=== PATIENT | male | born 1950 | race Caucasian/White ===

== ENCOUNTER 2024-05-16 10:54 | Observation (INO) ==
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
--- NOTE | 2024-05-16 11:39 | CT ---
EXAMINATION: BRAIN W/O CON HISTORY: DIZZINESS; . COMPARISON STUDY: 07/11/2023 TECHNIQUE: Images were obtained in brain and bone windows. The above CT scan was done with automated exposure c ontrol and the mA and kV was adjusted to obtain quality images according to patient size. FINDINGS: There is no acute intracranial hemorrhage, midline shift or edema present. There is atrophy and deep white matter ischemic change due to small vessel disease. Phelps-white matter differentiation is main tained throughout. There are no intra-axial or extra-axial collections noted. There is mild motion artifact. Basal ganglia calcification is noted.. The sinuses are clear. The mastoid air cells are clear. There is no radiographic evidence of depres sed skull fracture. Vascular calcification about the skull base. IMPRESSION: No acute intracranial process. Atrophy and deep white matter ischemic change due to small vessel dis ease. No change compared with prior. THIS IS AN ELECTRONICALLY VERIFIED FINAL REPORT 05/16/2024 11:36 AM - Electronically signed by Davion Olsen MD
[2024-05-16] MEDS ORDERED: NS 500 ML IV 500 ML IV ONE (11:41)
[2024-05-16] MEDS: NS 500 ML IV 500 ML IV ONE (11:48)
--- NOTE | 2024-05-16 11:50 | EKG ---
Test Reason : altered MS Blood Pressure : */* mmHG Vent. Rate : 61 BPM Atrial Rate : 61 BPM P-R Int : 196 ms QRS Dur : 96 ms QT Int : 460 ms P-R-T Axes : * 55 143 degrees QTc Int : 463 ms Atrial-paced rhythm Nonspecific ST and T wave abnormality Prolonged QT Abnormal ECG When compared with ECG of 11-JUL-2023 10:51, Nonspecific T wave abnormality, improved in Inferior leads T wave inversion now evident in Lateral leads Confirmed by Donal Koenig MD ([id number]) on 05/17/2024 6:01:40 AM Referred By: Confirmed By: Donal Koenig MD
[2024-05-16 12:11] LABS: BASOPHILS % (AUTO) 0.5 % (0.2-1.0); EOSINOPHILS # (AUTO) 0.1 x10^3/uL (0.0-0.2); HEMATOCRIT 36.9 % (42.0-54.0); HEMOGLOBIN 12.6 g/dL (13.5-18.0); LYMPHOCYTES # (AUTO) 1.1 X10^3/uL (1.3-2.9); LYMPHOCYTES % (AUTO) 17.6 % (21.0-51.0); MEAN CORPUSCULAR HEMOGLOBIN 34.6 pg (27.0-34.0); MEAN CORPUSCULAR HGB CONC 34.2 g/dL (33.0-35.0); MEAN CORPUSCULAR VOLUME 101.1 fL (80.0-100.0); MEAN PLATELET VOLUME 7.1 fL (7.4-11.0); MONOCYTES # (AUTO) 0.5 x10^3/uL (0.3-0.8); MONOCYTES % (AUTO) 8.5 % (0.0-13.0); NEUTROPHILS # (AUTO) 4.3 x10^3/uL (2.2-4.8); NEUTROPHILS % (AUTO) 71.4 % (42.0-75.0); PLATELET COUNT 206 X10^3/uL (150.0-450.0); RED BLOOD COUNT 3.65 X10^6/uL (4.7-6.0); RED CELL DISTRIBUTION WIDTH 14.1 % (11.6-16.5)
[2024-05-16 12:29] LABS: ALANINE AMINOTRANSFERASE 16 Units/L (12-78); ALKALINE PHOSPHATASE 88 Units/L (46-116); ASPARTATE AMINO TRANSFERASE 15 Units/L (15-37); BLOOD UREA NITROGEN 40 mg/dL (7-18); CARBON DIOXIDE 25.4 mmol/L (21-32); CHLORIDE 105 mmol/L (98-107); COR CA(FOR HYPOALB) 8.8 mg/dL (8.5-10.1); CREATINE KINASE 61 Units/L (39-308); CREATININE 1.97 mg/dL (0.70-1.30); GLUCOSE 109 mg/dL (65-99); LIPASE 19 Units/L (16-77); POTASSIUM 4.1 mmol/L (3.5-5.1); SODIUM 138 mmol/L (136-145); TOTAL PROTEIN 6.3 g/dL (6.4-8.2); eGFR NON BLACK RACES 35 (>60)
[2024-05-16] MEDS ORDERED: NS 1,000 ML IV 1,000 ML ONE (12:31)
--- NOTE | 2024-05-16 13:18 | RAD ---
EXAM:CHEST, 1 VIEWHISTORY:DIZZINESS;COMPARISON:July 11, 2023TECHNIQUE:Portable upright chest radiographFINDINGS:Stable heart size. Multi lead cardiac pacemaker in place with battery pack localized to the left chest wall. No developing consolidation or overt pulmonary edema, or pleural fluid collection. No pneumothorax or radiographic evidence of free air below the diaphragm.IMPRESSION:Stable chest radiograph without acute abnormalities.THIS IS AN ELECTRONICALLY VERIFIED FINAL REPORT05/16/2024 1:11 PM - Electronically signed by Sergio Cornejo MD
[2024-05-16 14:47] VITALS: BMI 23.5
[2024-05-16] MEDS ORDERED: CONSULT PHARMACY - POTASSIUM & MAGNESIUM XX SCH (16:19)
[2024-05-16 16:20] LABS: BILIRUBIN,URINE NEGATIVE (NEGATIVE); BLOOD/HEMOGLOBIN,URINE 5+ (NEGATIVE); GLUCOSE, URINE NEGATIVE (NEGATIVE); KETONES,URINE NEGATIVE (NEGATIVE); LEUKOCYTE ESTERASE ,URINE 2+ (NEGATIVE); NITRITES,URINE NEGATIVE (NEGATIVE); PROTEIN,URINE 2+ (NEGATIVE); UROBILINOGEN,URINE NORMAL (NORMAL)
[2024-05-16 16:25] LABS: APPEARANCE,URINE HAZY (CLEAR); COLOR,URINE DARK YELLOW (YELLOW)
[2024-05-16 16:32] LABS: BACTERIA,URINE 2+ /HPF (NEGATIVE); SQUAMOUS EPITHELIAL CELL,UR FEW /HPF (NEGATIVE)
[2024-05-16] MEDS: NS 1,000 ML IV 1,000 ML IV SCH (16:41)
--- NOTE | 2024-05-16 19:01 | EKG ---
Test Reason : arrythmia Blood Pressure : */* mmHG Vent. Rate : 64 BPM Atrial Rate : 64 BPM P-R Int : 202 ms QRS Dur : 96 ms QT Int : 440 ms P-R-T Axes : -14 19 146 degrees QTc Int : 453 ms Atrial-paced rhythm Nonspecific T wave abnormality Abnormal ECG When compared with ECG of 16-MAY-2024 11:35, (Unconfirmed) No significant change was found Confirmed by Donal Koenig MD ([id number]) on 05/17/2024 5:59:52 AM Referred By: Confirmed By: Donal Koenig MD
[2024-05-16] MEDS: ROCEPHIN VIAL 1 GRAM 1 G in NS 100 ML IV 100 ML IV SCH (21:59)
[2024-05-17 05:22] LABS: BASOPHILS % (AUTO) 0.5 % (0.2-1.0); EOSINOPHILS # (AUTO) 0.1 x10^3/uL (0.0-0.2); EOSINOPHILS % (AUTO) 1.4 % (0.9-2.9); HEMATOCRIT 36.7 % (42.0-54.0); HEMOGLOBIN 12.5 g/dL (13.5-18.0); LYMPHOCYTES # (AUTO) 1.4 X10^3/uL (1.3-2.9); LYMPHOCYTES % (AUTO) 16.3 % (21.0-51.0); MEAN CORPUSCULAR HEMOGLOBIN 34.6 pg (27.0-34.0); MEAN CORPUSCULAR HGB CONC 34.1 g/dL (33.0-35.0); MEAN CORPUSCULAR VOLUME 101.4 fL (80.0-100.0); MEAN PLATELET VOLUME 7.4 fL (7.4-11.0); MONOCYTES # (AUTO) 0.6 x10^3/uL (0.3-0.8); MONOCYTES % (AUTO) 7.6 % (0.0-13.0); NEUTROPHILS # (AUTO) 6.2 x10^3/uL (2.2-4.8); NEUTROPHILS % (AUTO) 74.2 % (42.0-75.0); PLATELET COUNT 202 X10^3/uL (150.0-450.0); RED BLOOD COUNT 3.62 X10^6/uL (4.7-6.0); RED CELL DISTRIBUTION WIDTH 13.9 % (11.6-16.5); WHITE BLOOD COUNT 8.3 X10^3/uL (3.6-10.0)
[2024-05-17 05:32] LABS: ALANINE AMINOTRANSFERASE 15 Units/L (12-78); ALBUMIN 2.8 g/dL (3.4-5.0); ALKALINE PHOSPHATASE 101 Units/L (46-116); ASPARTATE AMINO TRANSFERASE 17 Units/L (15-37); BLOOD UREA NITROGEN 30 mg/dL (7-18); CALCIUM 7.7 mg/dL (8.5-10.1); CHLORIDE 109 mmol/L (98-107); COR CA(FOR HYPOALB) 8.7 mg/dL (8.5-10.1); GLUCOSE 90 mg/dL (65-99); POTASSIUM 4.2 mmol/L (3.5-5.1); SODIUM 141 mmol/L (136-145); eGFR NON BLACK RACES 57 (>60)
[2024-05-17] MEDS: ISOSORBIDE MONONITRATE ER 24-HR PO SCH (10:00)
[2024-05-17] MEDS: LIPITOR TAB 40 MG PO SCH (10:00)
[2024-05-17] MEDS: RANEXA PO SCH (10:00)
[2024-05-17] MEDS: ASPIRIN EC 81 MG PO SCH (10:04)
[2024-05-17] MEDS: COZAAR PO SCH (10:08)
[2024-05-17] MEDS: PROSCAR PO SCH (10:08)
[2024-05-17] MEDS: ALDACTONE TAB 25 MG PO SCH (10:08)
[2024-05-17] MEDS: TOPROL XL PO SCH (10:08)
[2024-05-17] MEDS: PLAVIX PO SCH (10:08)
[2024-05-17] MEDS: PROTONIX TAB 40 MG PO SCH (10:08)
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
[2024-05-17] MEDS: FLOMAX PO SCH (21:07)
[2024-05-17] MEDS: NEURONTIN CAP 100 MG PO SCH (21:08)
[2024-05-18 04:35] VITALS: TEMP 98
[2024-05-18 05:25] LABS: BASOPHILS % (AUTO) 0.5 % (0.2-1.0); EOSINOPHILS # (AUTO) 0.1 x10^3/uL (0.0-0.2); EOSINOPHILS % (AUTO) 2.2 % (0.9-2.9); HEMATOCRIT 35.6 % (42.0-54.0); HEMOGLOBIN 12.1 g/dL (13.5-18.0); LYMPHOCYTES # (AUTO) 1.5 X10^3/uL (1.3-2.9); LYMPHOCYTES % (AUTO) 23.1 % (21.0-51.0); MEAN CORPUSCULAR HEMOGLOBIN 34.6 pg (27.0-34.0); MEAN CORPUSCULAR VOLUME 101.6 fL (80.0-100.0); MEAN PLATELET VOLUME 7.4 fL (7.4-11.0); MONOCYTES # (AUTO) 0.5 x10^3/uL (0.3-0.8); MONOCYTES % (AUTO) 7.5 % (0.0-13.0); NEUTROPHILS # (AUTO) 4.5 x10^3/uL (2.2-4.8); NEUTROPHILS % (AUTO) 66.7 % (42.0-75.0); PLATELET COUNT 198 X10^3/uL (150.0-450.0); RED BLOOD COUNT 3.51 X10^6/uL (4.7-6.0); RED CELL DISTRIBUTION WIDTH 13.9 % (11.6-16.5); WHITE BLOOD COUNT 6.7 X10^3/uL (3.6-10.0)
[2024-05-18 05:43] LABS: ALANINE AMINOTRANSFERASE 13 Units/L (12-78); ALBUMIN 2.8 g/dL (3.4-5.0); ALKALINE PHOSPHATASE 70 Units/L (46-116); ASPARTATE AMINO TRANSFERASE 15 Units/L (15-37); BLOOD UREA NITROGEN 17 mg/dL (7-18); CALCIUM 7.8 mg/dL (8.5-10.1); CARBON DIOXIDE 23.5 mmol/L (21-32); CHLORIDE 108 mmol/L (98-107); COR CA(FOR HYPOALB) 8.8 mg/dL (8.5-10.1); CREATININE 0.94 mg/dL (0.70-1.30); GLUCOSE 84 mg/dL (65-99); SODIUM 142 mmol/L (136-145); TOTAL PROTEIN 5.9 g/dL (6.4-8.2); eGFR NON BLACK RACES > 60 (>60)
[2024-05-18 10:53] VITALS: BP 173/90; PULSE 70; RESP 32; O2SAT 96
--- NOTE | 2024-05-22 15:22 | W.DIS.FURT ---
Summary of Discharge Discharge Summary of Date Date of Exam: 05/18/24 Admission Date Date of Admission: 05/16/24 Admission Diagnosis Patient Problems (Updated 05/17/24 @ 10:53 by Lorenzo Davidson) Acute hypotension (Acute) I95.9 Hospital Course: Patient is a 74-year-old male admitted for dehydration, acute kidney injury, and acute cystitis. His hospital/treatment course included: IV fluids, IV antibi otics Rocephin. Pt responded well to treatments and symptoms significantly improved. His blood pressure stabilized and confusion resolved. Urine culture no growth to date. Pt discharged in stable condition. Rx cefdinir. Instructed to follow up with pcp in 1 week. Vital Signs: Vital Signs (72 hours) 05/16/24 10:56 05/16/24 11:41 05/16/24 11:45 Temperature 97.6 F Pulse Rate 62 64 67 Pulse Rate [Right Brachial] Pulse Rate [Right Radial] Respiratory Rate 17 24 17 Blood Pressure 86/54 Blood Pressure [Right Arm] O2 Sat by Pulse Oximetry 94 L Oxygen Delivery Method Room Air 05/16/24 11:00 05/16/24 11:30 05/16/24 12:00 Temperature Pulse Rate 62 61 Pulse Rate [Right Brachial] Pulse Rate [Right Radial] Respiratory Rate Blood Pressure 96/51 84/51 75/51 Blood Pressure [Right Arm] O2 Sat by Pulse Oximetry 93 L Oxygen Delivery Method 05/16/24 12:00 05/16/24 12:11 05/16/24 12:11 Temperature Pulse Rate 62 61 Pulse Rate [Right Brachial] Pulse Rate [Right Radial] Respiratory Rate 26 H 20 Blood Pressure 101/58 Blood Pressure [Right Arm] O2 Sat by Pulse Oximetry Oxygen Delivery Method 05/16/24 12:15 05/16/24 12:30 05/16/24 12:30 Temperature Pulse Rate 61 60 Pulse Rate [Right Brachial] Pulse Rate [Right Radial] Respiratory Rate 19 22 Blood Pressure 99/57 Blood Pressure [Right Arm] O2 Sat by Pulse Oximetry Oxygen Delivery Method 05/16/24 12:30 05/16/24 12:45 05/16/24 13:00 Temperature Pulse Rate 60 Pulse Rate [Right Brachial] Pulse Rate [Right Radial] Respiratory Rate 22 Blood Pressure 99/57 102/57 Blood Pressure [Right Arm] O2 Sat by Pulse Oximetry Oxygen Delivery Method 05/16/24 13:00 05/16/24 13:15 05/16/24 13:30 Temperature Pulse Rate 62 61 Pulse Rate [Right Brachial] Pulse Rate [Right Radial] Respiratory Rate 25 H 23 Blood Pressure 111/58 Blood Pressure [Right Arm] O2 Sat by Pulse Oximetry Oxygen Delivery Method 05/16/24 13:30 05/16/24 13:45 05/16/24 14:00 Temperature Pulse Rate 63 63 63 Pulse Rate [Right Brachial] Pulse Rate [Right Radial] Respiratory Rate 24 19 18 Blood Pressure Blood Pressure [Right Arm] O2 Sat by Pulse Oximetry Oxygen Delivery Method 05/16/24 14:00 05/16/24 14:14 05/16/24 14:43 Temperature 98.2 F Pulse Rate Pulse Rate [Right Brachial] 68 Pulse Rate [Right Radial] Respiratory Rate 22 Blood Pressure 111/64 Blood Pressure [Right Arm] 111/63 O2 Sat by Pulse Oximetry Oxygen Delivery Method Room Air 05/16/24 15:00 05/16/24 14:14 05/16/24 16:00 Temperature 97.6 F 97.6 F Pulse Rate 68 68 Pulse Rate [Right Brachial] 60 Pulse Rate [Right Radial] Respiratory Rate 23 33 H 20 Blood Pressure 111/63 89/57 Blood Pressure [Right Arm] 104/58 O2 Sat by Pulse Oximetry 95 Oxygen Delivery Method Room Air Room Air 05/16/24 13:48 05/16/24 16:07 05/16/24 15:00 Temperature Pulse Rate 62 63 Pulse Rate [Right Brachial] Pulse Rate [Right Radial] Respiratory Rate 20 20 Blood Pressure 104/58 101/63 Blood Pressure [Right Arm] O2 Sat by Pulse Oximetry 94 L Oxygen Delivery Method Room Air Room Air Room Air 05/16/24 17:00 05/16/24 18:00 05/16/24 19:00 Temperature Pulse Rate 60 83 Pulse Rate [Right Brachial] Pulse Rate [Right Radial] Respiratory Rate 17 21 Blood Pressure 112/65 118/81 Blood Pressure [Right Arm] O2 Sat by Pulse Oximetry 94 L 95 Oxygen Delivery Method Room Air Room Air Room Air 05/16/24 19:00 05/16/24 20:00 05/16/24 20:00 Temperature 97.9 F 97.9 F Pulse Rate 71 60 Pulse Rate [Right Brachial] 60 Pulse Rate [Right Radial] 60 Respiratory Rate 17 20 20 Blood Pressure 119/64 132/58 Blood Pressure [Right Arm] 132/58 O2 Sat by Pulse Oximetry 95 97 95 Oxygen Delivery Method 05/16/24 21:00 05/16/24 22:00 05/16/24 20:25 Temperature Pulse Rate 83 70 Pulse Rate [Right Brachial] Pulse Rate [Right Radial] Respiratory Rate 20 18 Blood Pressure 139/64 135/62 Blood Pressure [Right Arm] O2 Sat by Pulse Oximetry 95 97 Oxygen Delivery Method Room Air Room Air 05/16/24 23:00 05/17/24 00:00 05/17/24 01:00 Temperature 98.2 F Pulse Rate 71 86 Pulse Rate [Right Brachial] Pulse Rate [Right Radial] 69 Respiratory Rate 19 20 20 Blood Pressure 121/61 125/66 Blood Pressure [Right Arm] 135/63 O2 Sat by Pulse Oximetry 94 L 95 95 Oxygen Delivery Method Room Air 05/17/24 03:00 05/16/24 15:00 05/16/24 15:15 Temperature Pulse Rate 70 63 60 Pulse Rate [Right Brachial] Pulse Rate [Right Radial] Respiratory Rate 23 20 19 Blood Pressure 132/73 Blood Pressure [Right Arm] O2 Sat by Pulse Oximetry 97 Oxygen Delivery Method 05/16/24 15:30 05/16/24 15:45 05/16/24 16:00 Temperature Pulse Rate 79 61 60 Pulse Rate [Right Brachial] Pulse Rate [Right Radial] Respiratory Rate 26 H 26 H 20 Blood Pressure Blood Pressure [Right Arm] O2 Sat by Pulse Oximetry 95 Oxygen Delivery Method 05/16/24 16:00 05/16/24 16:07 05/16/24 16:07 Temperature Pulse Rate 62 Pulse Rate [Right Brachial] Pulse Rate [Right Radial] Respiratory Rate 20 Blood Pressure 89/57 104/58 Blood Pressure [Right Arm] O2 Sat by Pulse Oximetry 94 L Oxygen Delivery Method 05/16/24 16:15 05/16/24 16:30 05/16/24 16:45 Temperature Pulse Rate 66 78 63 Pulse Rate [Right Brachial] Pulse Rate [Right Radial] Respiratory Rate 19 22 20 Blood Pressure Blood Pressure [Right Arm] O2 Sat by Pulse Oximetry 93 L 94 L 94 L Oxygen Delivery Method 05/16/24 17:00 05/16/24 17:00 05/16/24 17:15 Temperature Pulse Rate 60 67 Pulse Rate [Right Brachial] Pulse Rate [Right Radial] Respiratory Rate 17 24 Blood Pressure 112/65 Blood Pressure [Right Arm] O2 Sat by Pulse Oximetry 94 L 95 Oxygen Delivery Method 05/16/24 17:30 05/16/24 17:45 05/16/24 18:00 Temperature Pulse Rate 67 66 91 H Pulse Rate [Right Brachial] Pulse Rate [Right Radial] Respiratory Rate 26 H 24 31 H Blood Pressure Blood Pressure [Right Arm] O2 Sat by Pulse Oximetry 95 95 96 Oxygen Delivery Method 05/16/24 18:01 05/16/24 18:01 05/16/24 18:15 Temperature Pulse Rate 83 68 Pulse Rate [Right Brachial] Pulse Rate [Right Radial] Respiratory Rate 37 H 19 Blood Pressure 118/81 Blood Pressure [Right Arm] O2 Sat by Pulse Oximetry 95 94 L Oxygen Delivery Method 05/16/24 18:30 05/16/24 18:45 05/16/24 19:00 Temperature Pulse Rate 60 77 66 Pulse Rate [Right Brachial] Pulse Rate [Right Radial] Respiratory Rate 20 32 H 21 Blood Pressure Blood Pressure [Right Arm] O2 Sat by Pulse Oximetry 96 95 92 L Oxygen Delivery Method 05/16/24 19:00 05/16/24 19:15 05/16/24 19:30 Temperature Pulse Rate 70 68 Pulse Rate [Right Brachial] Pulse Rate [Right Radial] Respiratory Rate 38 H 34 H Blood Pressure 119/64 Blood Pressure [Right Arm] O2 Sat by Pulse Oximetry 95 96 Oxygen Delivery Method 05/16/24 19:45 05/16/24 20:00 05/16/24 20:01 Temperature Pulse Rate 66 61 Pulse Rate [Right Brachial] Pulse Rate [Right Radial] Respiratory Rate 17 21 Blood Pressure 132/58 Blood Pressure [Right Arm] O2 Sat by Pulse Oximetry 94 L 94 L Oxygen Delivery Method 05/16/24 20:01 05/16/24 20:15 05/16/24 20:30 Temperature Pulse Rate 62 63 60 Pulse Rate [Right Brachial] Pulse Rate [Right Radial] Respiratory Rate 17 21 20 Blood Pressure Blood Pressure [Right Arm] O2 Sat by Pulse Oximetry 94 L 96 94 L Oxygen Delivery Method 05/16/24 20:45 05/16/24 21:00 05/16/24 21:00 Temperature Pulse Rate 64 74 Pulse Rate [Right Brachial] Pulse Rate [Right Radial] Respiratory Rate 16 22 Blood Pressure 139/64 Blood Pressure [Right Arm] O2 Sat by Pulse Oximetry 94 L 93 L Oxygen Delivery Method 05/16/24 21:15 05/16/24 21:30 05/16/24 21:45 Temperature Pulse Rate 72 72 90 Pulse Rate [Right Brachial] Pulse Rate [Right Radial] Respiratory Rate 18 22 47 H Blood Pressure Blood Pressure [Right Arm] O2 Sat by Pulse Oximetry 96 91 L 97 Oxygen Delivery Method 05/16/24 22:00 05/16/24 22:00 05/16/24 22:15 Temperature Pulse Rate 71 78 Pulse Rate [Right Brachial] Pulse Rate [Right Radial] Respiratory Rate 21 26 H Blood Pressure 135/62 Blood Pressure [Right Arm] O2 Sat by Pulse Oximetry 94 L 94 L Oxygen Delivery Method 05/16/24 22:30 05/16/24 22:45 05/16/24 23:00 Temperature Pulse Rate 92 H 75 71 Pulse Rate [Right Brachial] Pulse Rate [Right Radial] Respiratory Rate 38 H 33 H 19 Blood Pressure Blood Pressure [Right Arm] O2 Sat by Pulse Oximetry 97 93 L 94 L Oxygen Delivery Method 05/16/24 23:00 05/16/24 23:15 05/16/24 23:30 Temperature Pulse Rate 80 74 Pulse Rate [Right Brachial] Pulse Rate [Right Radial] Respiratory Rate 22 20 Blood Pressure 121/61 Blood Pressure [Right Arm] O2 Sat by Pulse Oximetry 95 95 Oxygen Delivery Method 05/16/24 23:45 05/17/24 00:00 05/17/24 00:00 Temperature Pulse Rate 74 69 Pulse Rate [Right Brachial] Pulse Rate [Right Radial] Respiratory Rate 18 20 Blood Pressure 135/63 Blood Pressure [Right Arm] O2 Sat by Pulse Oximetry 95 95 Oxygen Delivery Method 05/17/24 00:15 05/17/24 00:30 05/17/24 00:45 Temperature Pulse Rate 64 67 68 Pulse Rate [Right Brachial] Pulse Rate [Right Radial] Respiratory Rate 18 15 16 Blood Pressure Blood Pressure [Right Arm] O2 Sat by Pulse Oximetry 96 90 L 97 Oxygen Delivery Method 05/17/24 01:00 05/17/24 01:00 05/17/24 01:15 Temperature Pulse Rate 71 79 Pulse Rate [Right Brachial] Pulse Rate [Right Radial] Respiratory Rate 17 23 Blood Pressure 125/66 Blood Pressure [Right Arm] O2 Sat by Pulse Oximetry 95 94 L Oxygen Delivery Method 05/17/24 01:30 05/17/24 01:45 05/17/24 02:00 Temperature Pulse Rate 78 75 77 Pulse Rate [Right Brachial] Pulse Rate [Right Radial] Respiratory Rate 19 21 24 Blood Pressure Blood Pressure [Right Arm] O2 Sat by Pulse Oximetry 92 L 96 94 L Oxygen Delivery Method 05/17/24 02:00 05/17/24 02:15 05/17/24 02:30 Temperature Pulse Rate 79 78 Pulse Rate [Right Brachial] Pulse Rate [Right Radial] Respiratory Rate 22 24 Blood Pressure 136/72 Blood Pressure [Right Arm] O2 Sat by Pulse Oximetry 95 95 Oxygen Delivery Method 05/17/24 02:45 05/17/24 03:00 05/17/24 03:00 Temperature Pulse Rate 78 79 Pulse Rate [Right Brachial] Pulse Rate [Right Radial] Respiratory Rate 20 30 H Blood Pressure 132/73 Blood Pressure [Right Arm] O2 Sat by Pulse Oximetry 95 96 Oxygen Delivery Method 05/17/24 03:15 05/17/24 03:30 05/17/24 03:45 Temperature Pulse Rate 67 63 76 Pulse Rate [Right Brachial] Pulse Rate [Right Radial] Respiratory Rate 20 14 34 H Blood Pressure Blood Pressure [Right Arm] O2 Sat by Pulse Oximetry 95 94 L 97 Oxygen Delivery Method 05/17/24 04:00 05/17/24 04:00 05/17/24 04:15 Temperature Pulse Rate 74 61 Pulse Rate [Right Brachial] Pulse Rate [Right Radial] Respiratory Rate 19 18 Blood Pressure 137/76 Blood Pressure [Right Arm] O2 Sat by Pulse Oximetry 95 98 Oxygen Delivery Method 05/17/24 04:30 05/17/24 04:00 05/17/24 06:00 Temperature 98.1 F Pulse Rate 71 60 Pulse Rate [Right Brachial] Pulse Rate [Right Radial] 66 Respiratory Rate 58 H 20 15 Blood Pressure 141/63 Blood Pressure [Right Arm] 137/76 O2 Sat by Pulse Oximetry 95 95 13 L Oxygen Delivery Method Room Air 05/17/24 04:45 05/17/24 05:00 05/17/24 05:00 Temperature Pulse Rate 76 75 Pulse Rate [Right Brachial] Pulse Rate [Right Radial] Respiratory Rate 28 H 20 Blood Pressure 141/68 Blood Pressure [Right Arm] O2 Sat by Pulse Oximetry 97 94 L Oxygen Delivery Method 05/17/24 05:15 05/17/24 05:30 05/17/24 07:00 Temperature 97.5 F L Pulse Rate 77 77 64 Pulse Rate [Right Brachial] Pulse Rate [Right Radial] Respiratory Rate 18 19 15 Blood Pressure 137/61 Blood Pressure [Right Arm] O2 Sat by Pulse Oximetry 94 L 97 94 L Oxygen Delivery Method Room Air 05/17/24 08:00 05/17/24 07:00 05/17/24 09:00 Temperature Pulse Rate 76 74 Pulse Rate [Right Brachial] Pulse Rate [Right Radial] Respiratory Rate 21 25 H Blood Pressure 155/78 147/69 Blood Pressure [Right Arm] O2 Sat by Pulse Oximetry 95 96 Oxygen Delivery Method Room Air Room Air Room Air 05/17/24 09:32 05/17/24 10:00 05/17/24 11:00 Temperature 98.1 F Pulse Rate 80 71 Pulse Rate [Right Brachial] Pulse Rate [Right Radial] Respiratory Rate 20 22 Blood Pressure 153/81 162/76 Blood Pressure [Right Arm] O2 Sat by Pulse Oximetry 97 94 L Oxygen Delivery Method Room Air Room Air Room Air 05/17/24 12:00 05/17/24 13:00 05/17/24 14:00 Temperature Pulse Rate 71 74 86 Pulse Rate [Right Brachial] Pulse Rate [Right Radial] Respiratory Rate 38 H 25 H 27 H Blood Pressure 140/78 147/69 159/72 Blood Pressure [Right Arm] O2 Sat by Pulse Oximetry 95 96 96 Oxygen Delivery Method Room Air Room Air Room Air 05/17/24 15:00 05/17/24 18:00 05/17/24 16:00 Temperature 98.1 F Pulse Rate 60 70 60 Pulse Rate [Right Brachial] Pulse Rate [Right Radial] Respiratory Rate 20 21 20 Blood Pressure 145/71 160/75 150/72 Blood Pressure [Right Arm] O2 Sat by Pulse Oximetry 96 97 96 Oxygen Delivery Method Room Air Room Air Room Air 05/17/24 17:00 05/17/24 19:00 05/17/24 20:00 Temperature 97.9 F Pulse Rate 60 74 68 Pulse Rate [Right Brachial] Pulse Rate [Right Radial] Respiratory Rate 18 23 23 Blood Pressure 163/77 153/81 179/85 Blood Pressure [Right Arm] O2 Sat by Pulse Oximetry 94 L 96 97 Oxygen Delivery Method Room Air Room Air Room Air 05/17/24 19:00 05/17/24 21:00 05/17/24 22:00 Temperature Pulse Rate 61 60 Pulse Rate [Right Brachial] Pulse Rate [Right Radial] Respiratory Rate 24 24 Blood Pressure 155/80 166/76 Blood Pressure [Right Arm] O2 Sat by Pulse Oximetry 97 96 Oxygen Delivery Method Room Air Room Air Room Air 05/17/24 23:00 05/18/24 00:00 05/18/24 01:00 Temperature Pulse Rate 67 76 60 Pulse Rate [Right Brachial] Pulse Rate [Right Radial] Respiratory Rate 17 22 17 Blood Pressure 157/75 136/76 117/59 Blood Pressure [Right Arm] O2 Sat by Pulse Oximetry 92 L 92 L 95 Oxygen Delivery Method Room Air Room Air Room Air 05/18/24 02:00 05/18/24 03:00 05/18/24 04:00 Temperature 98 F Pulse Rate 65 62 76 Pulse Rate [Right Brachial] Pulse Rate [Right Radial] Respiratory Rate 20 22 24 Blood Pressure 168/77 179/84 154/78 Blood Pressure [Right Arm] O2 Sat by Pulse Oximetry 97 95 98 Oxygen Delivery Method Room Air Room Air Room Air 05/18/24 05:00 05/18/24 06:00 05/18/24 07:00 Temperature Pulse Rate 62 60 Pulse Rate [Right Brachial] Pulse Rate [Right Radial] Respiratory Rate 16 15 Blood Pressure 149/70 142/68 Blood Pressure [Right Arm] O2 Sat by Pulse Oximetry 96 93 L Oxygen Delivery Method Room Air Room Air Room Air 05/18/24 07:00 05/18/24 07:00 05/18/24 07:15 Temperature Pulse Rate 74 63 Pulse Rate [Right Brachial] Pulse Rate [Right Radial] Respiratory Rate 18 14 Blood Pressure 160/78 Blood Pressure [Right Arm] O2 Sat by Pulse Oximetry 95 96 Oxygen Delivery Method 05/18/24 07:30 05/18/24 07:45 05/18/24 08:00 Temperature Pulse Rate 91 H 70 65 Pulse Rate [Right Brachial] Pulse Rate [Right Radial] Respiratory Rate 39 H 22 24 Blood Pressure Blood Pressure [Right Arm] O2 Sat by Pulse Oximetry 95 97 97 Oxygen Delivery Method 05/18/24 08:00 Temperature Pulse Rate Pulse Rate [Right Brachial] Pulse Rate [Right Radial] Respiratory Rate Blood Pressure 172/84 Blood Pressure [Right Arm] O2 Sat by Pulse Oximetry Oxygen Delivery Method Labs: Laboratory Last Values WBC 6.7 X10^3/uL (3.6-10.0) 05/18/24 04:23 RBC 3.51 X10^6/uL (4.7-6.0) L 05/18/24 04:23 Hgb 12.1 g/dL (13.5-18.0) L 05/18/24 04:23 Hct 35.6 % (42.0-54.0) L 05/18/24 04:23 MCV 101.6 fL (80.0-100.0) H 05/18/24 04:23 MCH 34.6 pg (27.0-34.0) H 05/18/24 04:23 MCHC 34.0 g/dL (33.0-35.0) 05/18/24 04:23 RDW 13.9 % (11.6-16.5) 05/18/24 04:23 Plt Count 198 X10^3/uL (150.0-450.0) 05/18/24 04:23 MPV 7.4 fL (7.4-11.0) 05/18/24 04:23 Neut % (Auto) 66.7 % (42.0-75.0) 05/18/24 04:23 Lymph % (Auto) 23.1 % (21.0-51.0) 05/18/24 04:23 [place] % (Auto) 7.5 % (0.0-13.0) 05/18/24 04:23 Eos % (Auto) 2.2 % (0.9-2.9) 05/18/24 04:23 Baso % (Auto) 0.5 % (0.2-1.0) 05/18/24 04:23 Neut # (Auto) 4.5 x10^3/uL (2.2-4.8) 05/18/24 04:23 Lymph # (Auto) 1.5 X10^3/uL (1.3-2.9) 05/18/24 04:23 [place] # (Auto) 0.5 x10^3/uL (0.3-0.8) 05/18/24 04:23 Eos # (Auto) 0.1 x10^3/uL (0.0-0.2) 05/18/24 04:23 Baso # (Auto) 0.0 X10^3/uL (0.0-0.1) 05/18/24 04:23 Absolute Nucleated RBC 0.0 /100WBC 05/18/24 04:23 Sodium 142 mmol/L (136-145) 05/18/24 04:23 Corrected Sodium TNP 05/18/24 04:23 Potassium 4.0 mmol/L (3.5-5.1) 05/18/24 04:23 Chloride 108 mmol/L (98-107) H 05/18/24 04:23 Carbon Dioxide 23.5 mmol/L (21-32) 05/18/24 04:23 BUN 17 mg/dL (7-18) 05/18/24 04:23 Creatinine 0.94 mg/dL (0.70-1.30) 05/18/24 04:23 Est GFR (MDRD) Af Amer > 60 (>60) 05/18/24 04:23 Est GFR (MDRD) Non-Af > 60 (>60) 05/18/24 04:23 Glucose 84 mg/dL (65-99) 05/18/24 04:23 Lactic Acid 0.9 mmol/L (0.4-2.0) 05/16/24 11:55 Calcium 7.8 mg/dL (8.5-10.1) L 05/18/24 04:23 Corrected Calcium 8.8 mg/dL (8.5-10.1) 05/18/24 04:23 Total Bilirubin 0.40 mg/dL (0.2-1.0) 05/18/24 04:23 AST 15 Units/L (15-37) 05/18/24 04:23 ALT 13 Units/L (12-78) 05/18/24 04:23 Alkaline Phosphatase 70 Units/L (46-116) 05/18/24 04:23 Creatine Kinase 61 Units/L (39-308) 05/16/24 11:55 Troponin I High Sens 36.1 ng/L (4.0-60.0) 05/16/24 11:55 Total Protein 5.9 g/dL (6.4-8.2) L 05/18/24 04:23 Albumin 2.8 g/dL (3.4-5.0) L 05/18/24 04:23 Globulin 3.1 g/dL (2.5-4.5) 05/18/24 04:23 Albumin/Globulin Ratio 0.9 Ratio (1.1-2.1) L 05/18/24 04:23 Lipase 19 Units/L (16-77) 05/16/24 11:55 Specimen Type Clean catch urine 05/16/24 16:00 Urine Color Dark yellow (YELLOW) 05/16/24 16:00 Urine Appearance Hazy (CLEAR) 05/16/24 16:00 Urine pH 6.0 (5.0 - 8.0) 05/16/24 16:00 Ur Specific [place] 1.020 (1.000-1.030) 05/16/24 16:00 Urine Protein 2+ (NEGATIVE) 05/16/24 16:00 Urine Glucose (UA) Negative (NEGATIVE) 05/16/24 16:00 Urine Ketones Negative (NEGATIVE) 05/16/24 16:00 Urine Blood 5+ (NEGATIVE) 05/16/24 16:00 Urine Nitrite Negative (NEGATIVE) 05/16/24 16:00 Urine Bilirubin Negative (NEGATIVE) 05/16/24 16:00 Urine Urobilinogen Normal (NORMAL) 05/16/24 16:00 Ur Leukocyte Esterase 2+ (NEGATIVE) 05/16/24 16:00 Urine RBC 10-20 /HPF (0-3) A 05/16/24 16:00 Urine WBC 20-30 /HPF (0-5) A 05/16/24 16:00 Ur Squamous Epith Cells Few /HPF (NEGATIVE) 05/16/24 16:00 Urine Bacteria 2+ /HPF (NEGATIVE) 05/16/24 16:00 Ur Culture Indicated? Yes/culture set up 05/16/24 16:00 Reason For Visit: ACUTE HYPOTENSION Discharge Date Discharge Date: 05/18/24 Discharge Diagnosis All Active Problems (Updated 05/17/24 @ 10:53 by Lorenzo Davidson) Acute kidney injury (Acute) Dehydration (Acute) Acute cystitis (Acute) Acute hypotension (Acute) Pacemaker (Acute) Alzheimer's disease (Acute) Laceration of forearm, left (Acute) Left against medical advice (Acute) Bite, snake (Acute) Plan of Treatment: Continue with present treatment and follow up plan. Pt is to keep follow up appointment as instructed and take medications as ordered. Discharge Medications Discharge Medications: codeine Allergy (Mild, Verified 05/16/24 17:33) Itching CONTINUE taking the following medications aspirin 81 mg tablet 81 mg PO QDAY 05/16/24 [History] atorvastatin 40 mg tablet 40 mg PO DAILY 05/16/24 [History] clopidogrel 75 mg tablet (Plavix) 75 mg PO QDAY 05/16/24 [History] finasteride 5 mg tablet 5 mg PO QDAY 05/16/24 [History] gabapentin 100 mg capsule 100 mg PO QHS 05/16/24 [History] isosorbide mononitrate 60 mg tablet,extended release 24 hr 60 mg PO QAM 05/16/24 [History] losartan 50 mg tablet 50 mg PO QDAY 05/16/24 [History] meclizine 12.5 mg tablet 12.5 mg PO TID PRN 05/16/24 [History] metoprolol succinate 50 mg tablet,extended release 24 hr 50 mg PO QDAY 05/16/24 [History] oxybutynin chloride 5 mg tablet 5 mg PO QDAY 05/16/24 [History] pantoprazole 40 mg tablet,delayed release (Protonix) 40 mg PO QDAY 05/16/24 [History] pyridostigmine bromide 60 mg tablet 60 mg PO BID 05/16/24 [History] ranolazine 1,000 mg tablet,extended release,12 hr 1,000 mg PO BID 05/16/24 [History] spironolactone 25 mg tablet 25 mg PO QDAY 05/16/24 [History] tamsulosin 0.4 mg capsule (Flomax) 0.4 mg PO QHS 05/16/24 [History] Discharge Plan Discharge Plan Hospital Course: Patient is a 74-year-old male admitted for dehydration, acute kidney injury, and acute cystitis. His hospital/treatment course included: IV fluids, IV antibiotics Rocephin. Pt responded well to treatments and symptoms significantly improved. His blood pressure stabilized and confusion resolved. Urine culture no growth to date. Pt discharged in stable condition. Rx cefdinir. Instructed to follow up with pcp in 1 week. Patient Disposition: 01 HOME, SELF-CARE Condition: Stable Health Concerns: Post Hospitalization: new medications and changes needed to prevent readmission or further decline. Pt educated and given instructions on all concerns. Care Plan Goals: Problem: Cardiac Complications Goal: Early Recognition of cardiac complications for prompt intervention Instructions: Follow provided instructions. Follow up with primary physician as directed. Contact primary care physician or report to the closest Emergency Room if condition worsens. Plan of Treatment: Continue with present treatment and follow up plan. Pt is to keep follow up appointment as instructed and take medications as ordered. Prescriptions: New cefdinir 300 mg Capsule 300 mg PO BID Qty: 14 0RF Continued losartan 50 mg Tablet 50 mg PO QDAY atorvastatin 40 mg Tablet 40 mg PO DAILY metoprolol succinate 50 mg Tablet Extended Release 24 Hr 50 mg PO QDAY meclizine 12.5 mg Tablet 12.5 mg PO TID PRN clopidogrel [Plavix] 75 mg Tablet 75 mg PO QDAY spironolactone 25 mg Tablet 25 mg PO QDAY isosorbide mononitrate 60 mg Tablet Extended Release 24 Hr 60 mg PO QAM tamsulosin [Flomax] 0.4 mg Capsule 0.4 mg PO QHS pantoprazole [Protonix] 40 mg Tablet,Delayed Release (Dr/Ec) 40 mg PO QDAY pyridostigmine bromide 60 mg Tablet 60 mg PO BID aspirin 81 mg Tablet 81 mg PO QDAY gabapentin 100 mg Capsule 100 mg PO QHS oxybutynin chloride 5 mg Tablet 5 mg PO QDAY finasteride 5 mg Tablet 5 mg PO QDAY ranolazine 1,000 mg Tablet Extended Release 12 Hr 1,000 mg PO BID Orders to Discharge Patient Discharge Orders: Discharge (Routine); Ordered 05/18/24 Ordered By: Lorenzo Davidson Follow ups/Referrals Follow ups/Referrals: [facility] [Other] - 1 WEEK (Call office and schedule a follow up ) Instructions Instructions: Fall Prevention in the Home, Adult, [id number], Hypotension, [id number], Dehydration, Adult, [id number], Rehydration, Adult Stand Alone Forms: Post Hospital Follow Up Care
== END 2024-05-18 11:05 | disposition home or self-care (01) ==
LOC: ER 10:54 → ICU 10:54
PROVIDERS: ADMIT Family Medicine; ATTEND Family Medicine